=== PATIENT | male | born 1970 | race Caucasian/White ===

== ENCOUNTER 2022-08-19 09:01 | Outpatient (CLI) | payer BC, SELFPAY | END 2022-08-19 09:02 | disposition home or self-care (01) | PROVIDERS: PCP Family Medicine; Visit Provider Family Medicine | DX: Z00.00 Encounter for general adult medical examination without abnormal findings (principal); Z13.6 Encounter for screening for cardiovascular disorders; Z12.5 Encounter for screening for malignant neoplasm of prostate; Z85.038 Personal history of other malignant neoplasm of large intestine | CPT/HCPCS: 80053; 80061; 84153 ==

== ENCOUNTER 2022-09-08 07:30 | Outpatient (RCR) | payer BC, SELFPAY | END 2022-09-09 09:57 | disposition home or self-care (01) | PROVIDERS: PCP Family Medicine; Visit Provider Physician Assistant Medical | DX: M54.50 Low back pain, unspecified (principal); Z51.89 Encounter for other specified aftercare | CPT/HCPCS: 97110; 97140; 97161 ==

== ENCOUNTER 2023-08-21 09:16 | Outpatient (CLI) | payer BC, SELFPAY | END 2023-08-21 09:17 | disposition home or self-care (01) | PROVIDERS: PCP Family Medicine; Visit Provider Family Medicine | DX: Z00.00 Encounter for general adult medical examination without abnormal findings (principal); E55.9 Vitamin D deficiency, unspecified; R53.83 Other fatigue; I10 Essential (primary) hypertension; N40.0 Benign prostatic hyperplasia without lower urinary tract symptoms | CPT/HCPCS: 80053; 80061; 82306; 84443; G0103 ==

== ENCOUNTER 2024-04-11 06:27 | Outpatient (CLI) | payer BC, SELFPAY ==
--- NOTE | 2024-04-11 07:56 | P.ANES_ITS ---
Anesthesia Charges Start Date/Time Anesthesia Start Date: 04/11/24 Anesthesia Start Time: 07:28 Stop Date/Time Anesthesia Stop Date: 04/11/24 Anesthesia Stop Time: 07:54 Coding CPT Codes CPT Codes: JULIANNA LWR INTST SCR COLSC - [id number] ([id number]) P2 - PATIENT W/MILD SYST DISEASE, QK - CLINICAL BIOCHEMICAL GENETICIST 2-4 CNCRNT ANES PROC, QX - SPACE ENGINEER SVC W/ MD MED DIRECTION
--- NOTE | 2024-04-11 07:56 | W.ANESCHARGE ---
Anesthesia Charges Start Date/Time Anesthesia Start Date: 04/11/24 Anesthesia Start Time: 07:28 Stop Date/Time Anesthesia Stop Date: 04/11/24 Anesthesia Stop Time: 07:54 Coding CPT Codes CPT Codes: JULIANNA LWR INTST SCR COLSC - [id number] ([id number]) P2 - PATIENT W/MILD SYST DISEASE, QK - NEURO INTENSIVIST PHYSICIAN 2-4 CNCRNT ANES PROC, QX - PERINATAL TECHNICIAN SVC W/ MD MED DIRECTION
--- NOTE | 2024-04-11 08:41 | P.ANES_ITS ---
Anesthesia Charges Start Date/Time Anesthesia Start Date: 04/11/24 Anesthesia Start Time: 07:28 Stop Date/Time Anesthesia Stop Date: 04/11/24 Anesthesia Stop Time: 07:54 Coding CPT Codes CPT Codes: JULIANNA LWR INTST SCR COLSC - 39482 ([id number]) QK - CORRESPONDENCE CLERK 2-4 CNCRNT JULIANNA PROC, QX - SALES DEVELOPMENT ASSOCIATE SVC W/ MD MED DIRECTION, P2 - PATIENT W/MILD SYST DISEASE
--- NOTE | 2024-04-11 08:41 | W.ANESCHARGE ---
Anesthesia Charges Start Date/Time Anesthesia Start Date: 04/11/24 Anesthesia Start Time: 07:28 Stop Date/Time Anesthesia Stop Date: 04/11/24 Anesthesia Stop Time: 07:54 Coding CPT Codes CPT Codes: JULIANNA LWR INTST SCR COLSC - 79431 ([id number]) QK - CLINICAL DOCUMENTATION MANAGER 2-4 CNCRNT JULIANNA PROC, QX - PET CAREGIVER SVC W/ MD MED DIRECTION, P2 - PATIENT W/MILD SYST DISEASE
== END 2024-04-11 06:28 | disposition home or self-care (01) ==
PROVIDERS: PCP Family Medicine; Visit Provider Surgery
DX: Z12.11 Encounter for screening for malignant neoplasm of colon (principal); K57.30 Diverticulosis of large intestine without perforation or abscess without bleeding; Z98.0 Intestinal bypass and anastomosis status; Z85.038 Personal history of other malignant neoplasm of large intestine
CPT/HCPCS: 00812; 45378; J2704

== ENCOUNTER 2024-04-15 07:30 | Outpatient (RCR) | payer BC, SELFPAY | END 2024-08-13 23:59 | disposition home or self-care (01) | PROVIDERS: PCP Family Medicine; Visit Provider Physician Assistant | DX: S76.211A Strain of adductor muscle, fascia and tendon of right thigh, initial encounter (principal); M25.551 Pain in right hip; Z51.89 Encounter for other specified aftercare | CPT/HCPCS: 97110; 97161 ==

== ENCOUNTER 2024-08-22 10:03 | Outpatient (CLI) | payer BC, SELFPAY | END 2024-08-22 10:04 | disposition home or self-care (01) | PROVIDERS: PCP Family Medicine; Visit Provider Family Medicine | DX: E55.9 Vitamin D deficiency, unspecified (principal); R53.83 Other fatigue; N40.0 Benign prostatic hyperplasia without lower urinary tract symptoms; M54.2 Cervicalgia; Z12.5 Encounter for screening for malignant neoplasm of prostate; Z13.6 Encounter for screening for cardiovascular disorders; Z13.29 Encounter for screening for other suspected endocrine disorder | CPT/HCPCS: 80053; 80061; 82306; 84270; 84402; 84403; G0103 ==

== ENCOUNTER 2024-09-23 07:30 | Outpatient (RCR) | payer BC, SELFPAY ==
--- NOTE | 2024-09-23 08:12 | PT.OPDN ---
PT [facility] Out[facility] Daily Note PT [facility] Outpatient Daily Note Start: 09/02/24 07:23 Freq: Status: Active Protocol: Document 09/23/24 07:23 FREDDYT (Rec: 09/23/24 08:12 CJT [email or web address]) E-signed By Sriram Riggs, PT PT OP Daily Progress Note Visit Information Note Type Recert/Progress Note Visit Number [id number] Physician Authorized eval and treat Visits Insurance Information Recert Due Date 12/01/24 Insurance Name [employer] Medical Diagnosis M54.2 - neck pain Treating Diagnosis M54.2 - neck pain M25.511 - R shoulder pain Imaging Report X-Ray - Cervical Spine - 08/22/24 Information Bones: Alignment is normal. No fractures or significant bone lesions. Joints: Discogenic spurring C5-6. Mild spurring C6-7. Normal facet joints. Soft tissues: Unremarkable Referring MD Garcia Subjective Preferred Name Angel Subjective Until today, i have had no neck pain or shoulder pain. Exercises are killing my arm. LHBT is tender to the touch and there is an ache in the back part of my delt. Pain Comments 05/02 - Average 09/01 - Worst Home Exercise Home Exercise Access Code: [email or web address] Comments URL: [email or web address] Date: 09/02/2024 Prepared by: Sriram Riggs Exercises - Seated Cervical Sidebending Stretch - 2-3 x daily - 7 x weekly - 1 sets - 30 seconds hold - Seated Levator Scapulae Stretch - 2-3 x daily - 7 x weekly - 1 sets - 30 seconds hold - Shoulder Internal Rotation with Resistance - 1 x daily - 7 x weekly - 2-3 sets - 20 reps - Shoulder External Rotation with Anchored Resistance - 1 x daily - 7 x weekly - 2-3 sets - 20 reps - Shoulder extension with resistance - Neutral - 1 x daily - 7 x weekly - 2-3 sets - 20 reps - 3 seconds hold - Low Horizontal Abduction with Resistance - 1 x daily - 7 x weekly - 2-3 sets - 20 reps - 3 seconds hold Objective Other/Pertinent Cervical ROM Objective Extension - 55, some mild discomfort at base of neck Flexion - 54 R/L Side Bend - 33/30 R/L Rotation - 74/74 *R UT pain with rotation to R R Shoulder AROM Flexion/Abduction/IR/ER - 170/170/T6/55 L Shoulder AROM Flexion/Abduction/IR/ER - 170/170/T4/65 R Shoulder Strength Flexion - 5/5 MMT *pain at top and in posterior shoulder Abduction - 5/5 MMT IR (neutral) - 5/5 MMT IR (90) - 5/5 MMT ER (neutral) - 5/5 MMT ER (90) - 5/5 MMT Empty Can - 5/5 MMT L Shoulder Strength Flexion - 5/5 MMT Abduction - 5/5 MMT IR (neutral) - 5/5 MMT IR (90) - 5/5 MMT ER (neutral) - 5/5 MMT ER (90) - 5/5 MMT Empty Can - 5/5 MMT Palpation: pt reports tenderness/pain with palpation to B UT, levator, pec minor, pec major, R LHBT, rhomboids Posture: pts posture is fair with slight forward rounding of shoulders Special Testing [place]'s: negative Crossover: feels good [place]Marcus: minimally positive Whipple: minimally positive Neers: pain at end range at acromion Speeds: positive Crank: negative Clunk: negative Patient Instructed Yes in Risks/Benefits Therapeutic Exercise Therapeutic Exercise Posterior capsule stretch x 60 : To Restore Functional Status Manual Therapy Techniques Manual Therapy 38 Minutes (minutes) Manual Therapy STM performed to Bilateral suboccipitals, cervical Techniques paraspinals, scalenes, SCM, upper trapezius, levator scapulae, pectoralis minor, pectoralis major, rhomboids , thoracic paraspinals to reduce tissue tension and improve extensibility. Gentle manual distraction of cervical spine performed to further reduce tissue tension. Reverse UT and post capsule stretching in supine Treatment Minutes Timed Code Treatment 38 Minutes Total Treatment Time 38 Billing Units Manual Therapy Units 3 Assessment/Impression Assessment/ Angel demonstrates full ROM and strength in his R Impression shoulder. His neck pain is much improved. He does still show signs of RTC impingement and am concerned for a RTC tear in his R shoulder with his ongoing symptoms of a constant dull ache especially at night. At this time I would recommend MRI of the R shoulder to rule out further pathology. I will plan to see Angel for follow- ups for pain control as needed. Pts chart will be held at this time. Primary Functional Side planks, vacuuming, lifting Limitations Plan of Care Physical Therapy STG - To be completed in 2-3 weeks: Goals 1. Pt will demonstrate improved R shoulder strength to 5/5 MMT in all planes to provide adequate support to shoulder with daily activities. MET 2. Pt will report reduction in shoulder pain by factor of 2 so that they may sleep without waking due to pain while shifting position in the night. Pain continues to vary LTG - To be completed in 4-6 weeks: 1. Pt to be I with HEP so that they may I manage progression of symptoms. 2. Pt will report ability to lay on R shoulder in bed without increase in pain so that they may sleep in preferred position to achieve better night's sleep. 3. Pt will demo full and pain free shoulder ROM and strength so that they may return to recreational exercise with their friends. MET Daily Plan of Care Hold chart Comments
== END 2024-12-09 09:58 | disposition home or self-care (01) ==
PROVIDERS: PCP Family Medicine; Visit Provider Family Medicine
DX: M54.2 Cervicalgia (principal); Z51.89 Encounter for other specified aftercare
CPT/HCPCS: 97110; 97140; 97161

== ENCOUNTER 2024-10-11 07:27 | Outpatient (CLI) | payer BC, SELFPAY ==
--- NOTE | 2024-10-11 08:00 | CRLHL7_ITS ---
For Patients: As a result of the 21st Century Cures Act, medical imaging exams and procedure reports are released immediately into your electronic medical record. You may view this report before your referring provider. If you have questions, please contact your health care provider. EXAM: MRI OF THE RIGHT SHOULDER WITHOUT CONTRAST CLINICAL INDICATION: Shoulder pain. COMPARISON PLAIN FILMS: None available at time of interpretation. COMPARISON CROSS-SECTIONAL IMAGING STUDIES: None available at time of interpretation. TECHNICAL: Axial, sagittal oblique and coronal oblique T1, PD, PD FS and T2-weighted images. Shoulder surface coil. FINDINGS: ROTATOR CUFF TENDONS AND MUSCLES AND DELTOID: Supraspinatus: Low-grade partial-thickness intrasubstance tear of the distal anterior supraspinatus tendon at the insertional footprint measures 0.8 cm AP x 0.3 cm RL. The [place] accounts for less than the tendon thickness. Mild to moderate increased signal in the supraspinatus tendon consistent tendinopathy. Muscle atrophy or edema. Infraspinatus: No tendinosis, tendon tearing, muscle atrophy or muscle edema. Subscapularis: No tendinosis, tendon tearing, muscle atrophy or muscle edema. Teres Minor: No tendinosis, tendon tearing, muscle atrophy or muscle edema. Deltoid: No muscle atrophy or edema. BURSA: Subacromial-subdeltoid: Mild edema in the subacromial subdeltoid bursa. BICEPS TENDON, LONG HEAD: The long head of the biceps tendon is appropriately positioned within the bicipital groove without tendon subluxation or dislocation. The biceps cem mechanism is intact. The biceps anchor appears grossly intact. There is no significant tendinosis or tendon tearing. CORACOACROMIAL ARCH: Acromial Morphology: Type 1 acromial morphology. No abnormal lateral or anterior downward sloping of the acromion. No significant subacromial spur. No os acromiale. Acromiohumeral Interval: Normal. Coracohumeral Interval: Normal. ACROMIOCLAVICULAR JOINT REGION: AC Joint: Moderate arthropathy of the acromioclavicular joint with inferior marginal osteophytes. Ligaments: The coracoclavicular ligaments are intact. GLENOHUMERAL JOINT: Joint space: No effusion or synovitis. Humeral Head Articular Cartilage: No focal cartilage defect or underlying subchondral marrow changes. Glenoid Articular Cartilage: No focal cartilage defect or underlying subchondral marrow changes. Labrum: No labral tear or paralabral cyst. Alignment: Maintained. Capsule: No capsular edema or abnormal capsular thickening. OSSEOUS STRUCTURES: 0.8 cm subcortical cyst in the anterior aspect of the greater tuberosity. No fracture or contusion. No marrow infiltrative process. OTHER FINDINGS: There is no abnormality within the suprascapular or spinoglenoid notches nor within the quadrilateral space. No axillary adenopathy or mass. IMPRESSION: 1. Small partial-thickness intrasubstance tear of the distal anterior supraspinatus tendon with mild to moderate tendinopathy. 2. Moderate arthropathy of the acromioclavicular joint. 3. Mild edema in the subacromial subdeltoid bursa. 4. Small subcortical cyst in the greater tuberosity anteriorly. Dictated by Eric Campbell MD @ 10/12/2024 12:07:49 PM (Electronically Signed)
== END 2024-10-11 07:28 | disposition home or self-care (01) ==
LOC: MRI 07:28
PROVIDERS: PCP Family Medicine; Visit Provider Family Medicine
DX: M25.512 Pain in left shoulder (principal); M75.101 Unspecified rotator cuff tear or rupture of right shoulder, not specified as traumatic; M12.9 Arthropathy, unspecified
CPT/HCPCS: 73221